=== PATIENT | female | born 1985 | race American Indian/Alaskan Native ===

== ENCOUNTER 2023-01-01 22:44 | Emergency (ER) | payer MEDICAID, OTHER | END 2023-01-01 23:11 | LOC: MW.ED 22:44 | DX: T50.991A Poisoning by other drugs, medicaments and biological substances, accidental (unintentional), initial encounter (principal) | CPT/HCPCS: 99282; 99284 ==

== ENCOUNTER 2024-11-23 15:36 | Emergency (ER) | payer MEDICAID, OTHER ==
[2024-11-23] MEDS ORDERED: Sodium Chloride 0.9% 2.5 ML Syringe FLUSH PRN (18:15)
[2024-11-23] MEDS ORDERED: Sodium Chloride 0.9% 10 ML Syringe FLUSH PRN (18:15)
[2024-11-23 18:48] LABS: GLUCOSE,URINE NEGATIVE (NEGATIVE); OCCULT BLOOD,URINE NEGATIVE (NEGATIVE)
[2024-11-23 18:59] LABS: BLOOD UREA NITROGEN,BUN 11.0 mg/dL (7.0-18.0); CARBON DIOXIDE,CO2 26.1 mmol/L (21.0-32.0); CHLORIDE,CL 101.0 mmol/L (98-107); CREATININE 1.0 mg/dL (0.6-1.0); EST CRCL DRUG DOSING (CG) 70.01 mL/min; GLUCOSE RANDOM 99.0 mg/dL (74-106); POTASSIUM,K 4.5 mmol/L (3.5-5.1); SODIUM,NA 137.0 mmol/L (136-145)
[2024-11-23 19:00] LABS: ESTIMATED GFR 73.0 mL/min (>60)
[2024-11-23 19:06] LABS: BASOPHILS ABSOLUTE AUTO 0.03 K/uL (0.00-0.20); BASOPHILS PERCENT AUTO 0.3 % (0.0-1.0); EOSINOPHILS ABSOLUTE AUTO 0.37 K/uL (0.00-0.45); EOSINOPHILS PERCENT AUTO 4.1 % (0.0-6.0); IMMATURE GRAN ABSOLUTE AUTO 0.03 K/uL (0.00-0.05); IMMATURE GRAN PERCENT AUTO 0.3 % (0.0-0.4); LYMPHOCYTES ABSOLUTE AUTO 2.25 K/uL (1.00-4.80); LYMPHOCYTES PERCENT AUTO 25.0 % (24.0-44.0); MEAN PLATELET VOLUME 8.8 fL (9.4-12.3); MONOCYTES ABSOLUTE AUTO 0.32 K/uL (0.00-0.80); MONOCYTES PERCENT AUTO 3.6 % (0.0-8.0); NEUTROPHILS ABSOLUTE AUTO 6.01 K/uL (1.80-7.70); NEUTROPHILS PERCENT AUTO 66.7 % (41.0-71.0); NRBC ABSOLUTE 0.00 K/uL (0.00-0.02); NRBC PERCENT 0.0 /100WBC (0.0-0.2); PLATELET COUNT,PLT 384 K/uL (150-400); RED BLOOD CELL COUNT 5.69 M/uL (4.10-5.30); WHITE BLOOD CELL COUNT,WBC 9.01 K/uL (3.9-11.3)
[2024-11-23 19:07] LABS: APPEARANCE,URINE HAZY
[2024-11-23 19:08] LABS: EPITHELIAL CELLS,URINE FEW (NONE-FEW)
[2024-11-23] MEDS: cefTRIAXone 1 GM in Water For Injection, Sterile 10 ML IVPUSH ONE (19:32)
== END 2024-11-23 19:40 ==
LOC: MW.ED 15:36
DX: B34.9 Viral infection, unspecified (principal); N12 Tubulo-interstitial nephritis, not specified as acute or chronic; Z79.899 Other long term (current) drug therapy
CPT/HCPCS: 36415; 71046; 80048; 81001; 84703; 85025; 87428; 87651; 96361; 96374; 99284; J0696; J7030; 99283